=== PATIENT | female | born 1960 | race Caucasian/White ===

== ENCOUNTER 2024-05-22 09:48 | Emergency (ER) | payer BC ==
[~2024-05-22] VITALS: Ht 162.6 cm; Wt 64.0 kg
[2024-05-22] MEDS ORDERED: PIPERACILLIN Sodium-Tazobactam 3.375 GM in SODIUM CHLORIDE 0.9% 100 ML IV ONE (10:20)
[2024-05-22 10:34] LABS: BASO% 0.4 % (0-3); EOS% 0.2 % (0-8); HEMOGLOBIN 11.5 g/dl (12.0-16.0); IMMATURE GRANULOCYTES 0.1 % (0.0-5.0); LYMPH% 4.3 % (15-41); MEAN CELL VOLUME 98.6 fL CALC (80.0-100.0); MEAN CORPUSCULAR HGB 31.5 pG CALC (26.0-32.0); MEAN CORPUSCULAR HGB CONC 31.9 g/dL CAL (32.0-36.0); MONO% 6.8 % (2-13); NEUT# 8.66 thou/uL (2.00-7.15); NEUT% 88.2 % (42-76); RED BLOOD COUNT 3.65 mill/uL (4.20-5.60)
[2024-05-22 10:38] LABS: ALBUMIN 4.1 g/dL (3.2-5.0); ALKALINE PHOSPHATASE 88 u/l (38-126); ANION GAP 20 (6-22 (CALC)); BILIRUBIN, TOTAL 0.8 mg/dL (0.02-1.3); BUN 15 mg/dL (8-23); BUN/CREATININE RATIO 14 (12-20 (CALC)); CARBON DIOXIDE 20 mmol/l (22-30); CHLORIDE 102 mmol/l (95-108); CREATININE 1.1 mg/dL (0.5-1.0); ESTIMATED GFR 57 ML/MIN (>=90 (CALC)); POTASSIUM 3.6 mmol/l (3.5-5.1); SGOT/AST 35 u/l (9-36); SODIUM 138 mmol/l (137-146); TOTAL PROTEIN 7.4 g/dL (6.3-8.2)
[2024-05-22 10:45] VITALS: BP 142/90
[2024-05-22 11:08] VITALS: BP 132/83
[2024-05-22 11:15] VITALS: BP 136/78
[2024-05-22] MEDS ORDERED: MORPHINE SULFATE 4 MG/ML VIAL IV ONE (11:30)
[2024-05-22] MEDS ORDERED: ONDANSETRON HCl 4 MG/2 ML SDV IV ONE (11:35)
--- NOTE | 2024-05-25 07:27 | NUR ---
Preliminary blood culture results growing Microccus species in 1 of 4 bottles, strongly considered to be a contaminant. No follow-up warranted at this time.
== END 2024-05-22 11:30 | DRG 872 ==
LOC: ED 09:48 → EDBD 09:48 → ED 11:26
PROVIDERS: Family Medicine
DX: A41.9 Sepsis, unspecified organism (principal); T81.41XA Infection following a procedure, superficial incisional surgical site, initial encounter; T81.44XA Sepsis following a procedure, initial encounter; Y83.8 Other surgical procedures as the cause of abnormal reaction of the patient, or of later complication, without mention of misadventure at the time of the procedure; Z98.890 Other specified postprocedural states; Z20.822 Contact with and (suspected) exposure to COVID-19; Z95.828 Presence of other vascular implants and grafts
CPT/HCPCS: J2405; J2543